=== PATIENT | male | born 1970 | race American Indian/Alaskan Native ===

== ENCOUNTER 2018-06-13 17:39 | Emergency (ER) | payer OTHER ==
--- NOTE | 2018-06-13 19:17 | Emergency Department Report ---
ED Syncope HPI - General Chief Complaint: Extremity Problem,Nontraumatic Stated Complaint: LOWER EXTREMITY PAIN Time Seen by Provider: 06/13/18 18:34 - History of Present Illness Initial Comments: 48-year-old male presents to the ED following a syncopal episode. 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 Patient states he has been having multiple syncopal episodes late ly. Patient has not been worked up for it. Patient has no PCP, no known medical history. Patient admits to drinking beer daily, and using crack cocaine, which he states he last used last night. Patient states was not able to move or feel any of his extremities following this syncopal episode. Patient states he is currently back to baseline. Timing/Prior Episodes: recent history Precipitating Factors: Positive: lightheadedness Loss of Consciousness: brief (seconds) Current Symptoms: back to normal - Related Data Allergies/Adverse Reactions: Allergies No Known Allergies Allergy (Unverified 06/13/18 18:20) Home Medications: Ambulatory Orders No Known Home Medications [No Reported Home Medications] 06/13/18 ED Review of Systems ROS: Stated complaint: LOWER EXTREMITY PAIN Other details as noted in HPI Comment: All other systems reviewed and negative Constitutional: denies: chills, fever Respiratory: denies: shortness of breath Cardiovascular: denies: chest pain, palpitations Gastrointestinal: denies: abdominal pain, nausea, vomiting, diarrhea Neurological: headache, other (reports syncopal episodes) ED Past Medical Hx - Past Medical History Previous Medical History?: Yes Hx CVA: Yes (Reports hx. No residual) Additional medical history: Anxiety - Surgical History Past Surgical History?: No - Social History Smoking Status: Current Every Day Smoker Substance Use Type: Alcohol, Cocaine, Marijuana - Medications Home Medications: Home Medications Medication Instructions Recorded Confirmed Last Taken Type No Known Home Medications [No 06/13/18 06/13/18 Unknown History Reported Home Medications] ED Physical Exam - General Limitations: No Limitations General appearance: alert, in no apparent distress - Head Head exam: Present: atraumatic, normocephalic - Eye Eye exam: Present: normal appearance - ENT ENT exam: Present: mucous membranes moist - Neck Neck exam: Present: normal inspection - Respiratory Respiratory exam: Present: normal lung sounds bilaterally. Absent: respiratory distress - Cardiovascular Cardiovascular Exam: Present: regular rate, normal rhythm - GI/Abdominal GI/Abdominal exam: Present: soft. Absent: distended, tenderness - Extremities Exam Extremities exam: Present: normal inspection - Neurological Exam Neurological exam: Present: alert, oriented X3, CN II-XII intact. Absent: motor sensory deficit - Psychiatric Psychiatric exam: Present: normal affect, normal mood - Skin Skin exam: Present: warm, dry, intact, normal color. Absent: rash ED Course Vital Signs 06/13/18 06/13/18 06/13/18 18:24 19:00 19:15 Temperature 98.7 F Pulse Rate 74 75 65 Respiratory 18 18 17 Rate Blood Pressure 125/84 122/83 122/83 Blood Pressure [Right] O2 Sat by Pulse 98 Oximetry 06/13/18 06/13/18 06/13/18 19:30 19:45 20:00 Temperature Pulse Rate 68 62 67 Respiratory 17 17 18 Rate Blood Pressure 122/83 122/83 110/75 Blood Pressure [Right] O2 Sat by Pulse Oximetry 06/13/18 06/13/18 06/13/18 20:15 20:31 20:45 Temperature Pulse Rate 65 64 62 Respiratory 17 19 17 Rate Blood Pressure 110/75 110/75 119/88 Blood Pressure [Right] O2 Sat by Pulse 97 Oximetry 06/13/18 06/13/18 06/13/18 21:00 21:15 21:31 Temperature Pulse Rate 64 73 61 Respiratory 15 20 21 Rate Blood Pressure 119/78 119/78 119/78 Blood Pressure [Right] O2 Sat by Pulse 98 97 97 Oximetry 06/13/18 06/13/18 21:45 23:58 Temperature Pulse Rate 60 72 Respiratory 20 16 Rate Blood Pressure 119/78 Blood Pressure 109/70 [Right] O2 Sat by Pulse 97 99 Oximetry ED Medical Decision Making - Lab Data Result diagrams: 06/13/18 19:17 06/13/18 19:17 - EKG Data -: EKG Interpreted by [facility] EKG shows normal: sinus rhythm, axis, intervals, QRS complexes, ST-T waves Rate: normal - EKG Data Interpretation: no acute changes - Radiology Data Radiology results: report reviewed, image reviewed CT Head: no acute abnormality Radiology reports not crossing into [facility] due to tech issues; results faxed to ED - Medical Decision Making 48-year-old male presents to the ED following a syncopal episode earlier today. Patient with no neuro deficits on exam. Patient admits to drinking alcohol daily, also crack cocaine which was last used on yesterday. CT head normal. EKG unremarkable, no signs of ischemia or arrythmia. Labs normal, except for drug screen which is cocaine positive. Patient slightly orthostatic, so IV fluids given. Patient feeling much better at this time. Counseled patient on alcohol and drug abuse, advised cessation. Outpatient follow-up given. Return precautions given. Will discharge at this time. - Differential Diagnosis dehydration, arrythmia, anemia Critical care attestation.: If time is entered above; I have spent that time in minutes in the direct care of this critically ill patient, excluding procedure time. ED Disposition Clinical Impression: Syncope, Alcohol abuse, Drug abuse Disposition: DC-01 TO HOME OR SELFCARE Is pt being admited?: No Condition: Stable Instructions: Syncope (ED), Cocaine Abuse (ED), Abuse of Alcohol (ED) Referrals: [facility] [place] [Provider Group] - 3-5 Days Time of Disposition: 23:09
[2018-06-13 19:37] LABS: Basophils % (Auto) 0.6 % (0.0-1.8); Eosinophils # (Auto) 0.2 K/mm3 (0.0-0.4); Eosinophils % (Auto) 3.7 % (0.0-4.3); Hematocrit 43.9 % (35.5-45.6); Hemoglobin 14.3 gm/dl (11.8-15.2); Lymphocytes # (Auto) 2.5 K/mm3 (1.2-5.4); Lymphocytes % (Auto) 37.5 % (13.4-35.0); Mean Corpuscular HGB Conc 33 % (32-34); Mean Corpuscular Volume 73 fl (84-94); Monocytes # (Auto) 0.5 K/mm3 (0.0-0.8); Monocytes % (Auto) 7.4 % (0.0-7.3); Platelet Count 265 K/mm3 (140-440); Red Blood Count 5.99 M/mm3 (3.65-5.03); Red Cell Distribution Width 15.4 % (13.2-15.2)
[2018-06-13 19:39] LABS: Bacteria,Urine 1+ /HPF (Negative); Bilirubin,Urine NEG (Negative); Blood,Urine NEG (Negative); Color,Urine Yellow (Yellow); Mucus,Urine FEW /HPF; Protein,Urine <15 mg/dL mg/dL (Negative)
[2018-06-13 19:45] LABS: INR 0.95 (0.87-1.13)
[2018-06-13 19:47] LABS: Amphetamine Screen,Urine PRESUMPTIVE NEGATIVE; Benzodiazepines Screen,Urine PRESUMPTIVE NEGATIVE; Cannabinoid Screen,Urine PRESUMPTIVE NEGATIVE; Methadone Screen,Urine PRESUMPTIVE NEGATIVE; Opiate Screen,Urine PRESUMPTIVE NEGATIVE
[2018-06-13 20:12] LABS: Alanine Aminotransferase 14 units/L (7-56); Albumin 3.9 g/dL (3.9-5); BUN/Creatinine Ratio 9; Blood Urea Nitrogen 10 mg/dL (9-20); Calcium 8.7 mg/dL (8.4-10.2); Hemolysis Index 13
[2018-06-13 20:14] LABS: Bilirubin,Direct < 0.2 mg/dL (0-0.2)
[2018-06-13 20:32] LABS: Cocaine Screen,Urine PRESUMPTIVE POSITIVE
[2018-06-13] MEDS ORDERED: NACL 0.9% 1000 ML 1,000 ML IV ONE (20:45)
--- NOTE | 2018-06-13 23:20 | Cat Scan Report ---
CT HEAD/BRAIN WO CON CLINICAL INDICATION: Male, 48 years of age. syncope COMPARISON: None TECHNIQUE: Contiguous axial images were obtained from the vertex through the skull base.This CT exam was perform ed using one or more of the following dose reduction techniques: automated exposure control, adjustme nt of the mA and/or kV according to patient size, or use of iterative reconstruction technique. FINDINGS: No acute intracranial hemorrhage, midline shift, or extra-axial fluid collection. Ventricles and cis terns are normal in size and configuration for the patient's age. Jenkins white differentiation is main tained. Calvarium is grossly intact. Ocular globes are grossly unremarkable. Prominent retention cyst or polyp within the right maxillary sinus. Mastoid air cells are clear. IMPRESSION: No grossly acute intracranial abnormality. This document is electronically signed by Joe Adams DO., June 13 2018 08:00:27 PM ET
[2018-06-14 00:01] VITALS: BP 109/70
== END 2018-06-14 00:01 | disposition home or self-care (01) ==
LOC: ED 17:39
DX: F10.129 Alcohol abuse with intoxication, unspecified (principal); F15.129 Other stimulant abuse with intoxication, unspecified; F17.200 Nicotine dependence, unspecified, uncomplicated; F12.10 Cannabis abuse, uncomplicated; F14.10 Cocaine abuse, uncomplicated; F41.9 Anxiety disorder, unspecified; Z86.73 Personal history of transient ischemic attack (TIA), and cerebral infarction without residual deficits
CPT/HCPCS: 36415; 70450; 80048; 80076; 80307; 81001; 84484; 85025; 85610; 85730; 93005; 93010; 96360; 99284; G0480; J7030; 80320